=== PATIENT | female | born 2000 | race Caucasian/White ===

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

== ENCOUNTER 2021-03-19 13:37 | Emergency (ER) | payer OTHER ==
[~2021-03-19] VITALS: Ht 172.7 cm; Wt 90.9 kg
[~2021-03-19 13:37] MED LIST changes: +ONDA4TAB12 PO
[2021-03-19 15:41] LABS: INFLUENZA A PATIENT NEGATIVE (NEGATIVE); INFLUENZA B PATIENT NEGATIVE (NEGATIVE)
--- NOTE | 2021-03-19 16:21 | RAD ---
EXAMINATION: US OB <14 WKS +TV INDICATION: 21 years, Female, , abdominal pain and cramping, Covid 19 pneumonia. COMPARISON: 03/15/2019 TECHNIQUE: Transabdominal and transvaginal ultrasound of the pelvis was performed with grayscale, spe ctral, and color doppler imaging. FINDINGS: LMP: 01/09/2021 UTERUS: Measures: 8.7 x 8.3 x 7.0 cm. GESTATIONAL SAC: Normal morphology Juliette-Rump Length: 2.1 cm corresponds to 8 weeks and 5 days. Heart Rate: 185 bpm. Gestational age by last menstrual period:9 weeks and 6 days Expected date delivery by LMP: 10/16/2021. Expected date delivery by ultrasound is 10/24/2021 RIGHT OVARY/ADNEXA: Measures: 3.6 x 2.3 x 2.0 cm Right Ovarian Morphology: Unremarkable. Right Ovarian Color And Spectral Doppler Flow: Normal. LEFT OVARY/ADNEXA: Measures: 2.6 x 1.9 x 1.7 cm. Right Ovarian Morphology: Unremarkable. Right Ovarian Color And Spectral Doppler Flow: Normal. Fluid: None. IMPRESSION Single live intrauterine with estimated gestational age based on crown-rump length is 8 wee ks and 5 days. Electronically signed by: Marina Morrell MD (03/19/2021 4:18 PM) [facility]
[2021-03-19 16:24] LABS: BASO % 0 % (0-3); EOS % 0 % (0-3); HEMATOCRIT 37.6 % (36.0-47.0); HEMOGLOBIN 12.7 g/dL (12.0-15.5); LYMPH # 0.9 x10^3/uL (1.0-4.8); LYMPH % 13 % (24-48); MEAN CORPUSCULAR HEMOGLOBIN 30 pg (25-35); MEAN CORPUSCULAR HGB CONC 34 g/dL (31-37); MEAN CORPUSCULAR VOLUME 88 fL (79-100); MONO % 15 % (0-9); NEUT # 4.9 x10^3uL (1.8-7.7); NEUT % 72 % (31-73); PLATELET COUNT 229 x10^3/uL (140-400); RED BLOOD COUNT 4.28 x10^6/uL (3.50-5.40); RED CELL DISTRIBUTION WIDTH 15.1 % (11.5-14.5); WHITE BLOOD COUNT 6.8 x10^3/uL (4.0-11.0)
[2021-03-19] MEDS ORDERED: ONDANSETRON PF 4 MG/2 ML VIAL. IVP ONE (16:30)
[2021-03-19] MEDS ORDERED: IV NORMAL SALINE 1,000ML 1,000 ML IV ONE (16:30)
--- NOTE | 2021-03-19 16:30 | PHYS DOC ---
Past History Past Medical History: No Pertinent History (MASHA CARNEY APRN) Past Surgical History: Appendectomy (MASHA CARNEY APRN) Smoking: Non-smoker Alcohol Use: None Drug Use: None (MASHA CARNEY APRN) General Adult EDM: Chief Complaint: ABDOMINAL PAIN IN HPI: HPI: Patient is a 21-year-old female who presents to the emergency department today for fever, headache, nausea/vomiting and abdominal pain. She reports morning sickness but states that the vomiting has increased. Patient is reporting bilateral lower abdominal pain that she describes as sharp and rates 6 out of 10. She reports that her symptoms have been going on for approximately 1 week. Patient states that she has always had this constant pain ever since she found out she is . Patient is approximately 9 weeks . Her last menstrual period was January 09. She has an OB with the health department. She is G2, P1. She denies any cough, shortness of breath, chest pain, vaginal bleeding. (MASHA CARNEY APRN) Review of Systems: Review of Systems: Constitutional: negative unless reported in HPI Eyes: negative unless reported in HPI HENT: negative unless reported in HPI Respiratory: negative unless reported in HPI Cardiovascular: negative unless reported in HPI GI: negative unless reported in HPI : negative unless reported in HPI Musculoskeletal: negative unless reported in HPI Integument: negative unless reported in HPI Neurologic: negative unless reported in HPI Endocrine: negative unless reported in HPI Lymphatic: negative unless reported in HPI Psychiatric: negative unless reported in HPI (MASHA CARNEY APRN) Allergies: Allergies: Allergies Coded Allergies Type Severity Reaction Last Updated Verified No Known Drug Allergies 03/19/21 No (MASHA CARNEY APRN) Physical Exam: PE: Constitutional: Well developed, well nourished, no acute distress, non-toxic appearance. [] HENT: Normocephalic, atraumatic, bilateral external ears normal, oropharynx moist, no oral exudates, nose normal. [] Eyes: PERRL, EOMI, conjunctiva normal, no discharge. [] Neck: Normal range of motion, no stridor Cardiovascular:Heart rate regular rhythm, no murmur [] Lungs & Thorax: Bilateral breath sounds clear to auscultation [] Abdomen: Bowel sounds normal, soft, left lower pelvic/abdominal and pain with palpation, no masses, no pulsatile masses. [] Skin: Warm, dry, no erythema, no rash. [] Back: Normal range of motion Extremities: No tenderness, no cyanosis, no clubbing, ROM intact, no edema. [] Neurologic: Alert and oriented X 3, normal motor function, normal sensory function, no focal deficits noted. [] Psychologic: Affect normal, judgement normal, mood normal. [] (MASHA CARNEY APRN) Current Patient Data: Labs: Laboratory Tests Test 03/19/21 14:30 Influenza Type A (Rapid) Negative (NEGATIVE) Influenza Type B (Rapid) Negative (NEGATIVE) SARS-CoV-2 Antigen (Rapid) Positive (NEGATIVE) *A Vital Signs: Vital Signs Date Time Temp Pulse Resp B/P (MAP) Pulse Ox O2 Delivery O2 Flow Rate FiO2 03/19/21 14:25 98.0 97 18 119/78 (92) 99 Room Air (MASHA CARNEY APRN) EKG: EKG: [] (MASHA CARNEY APRN) Radiology/Procedures: Radiology/Procedures: []PROCEDURE: OB <14 WKS W/TV EXAMINATION: US OB <14 WKS +TV INDICATION: 21 years, Female, , abdominal pain and cramping, Covid 19 pneumonia. COMPARISON: 03/15/2019 TECHNIQUE: Transabdominal and transvaginal ultrasound of the pelvis was performed with grayscale, spectral, and color doppler imaging. FINDINGS: LMP: 01/09/2021 UTERUS: Measures: 8.7 x 8.3 x 7.0 cm. GESTATIONAL SAC: Normal morphology Burnet-Rump Length: 2.1 cm corresponds to 8 weeks and 5 days. Heart Rate: 185 bpm. Gestational age by last menstrual period:9 weeks and 6 days Expected date delivery by LMP: 10/16/2021. Expected date delivery by ultrasound is 10/24/2021 RIGHT OVARY/ADNEXA: Measures: 3.6 x 2.3 x 2.0 cm Right Ovarian Morphology: Unremarkable. Right Ovarian Color And Spectral Doppler Flow: Normal. LEFT OVARY/ADNEXA: Measures: 2.6 x 1.9 x 1.7 cm. Right Ovarian Morphology: Unremarkable. Right Ovarian Color And Spectral Doppler Flow: Normal. Fluid: None. IMPRESSION Single live intrauterine with estimated gestational age based on crown-rump length is 8 weeks and 5 days. Electronically signed by: Bessie Morrell MD (03/19/2021 4:18 PM) [facility] DICTATED AND SIGNED BY: BESSIE MORRELL MD DATE: 03/19/211612 CC: EMERGENCY,DEPARTMENT; MASHA CARNEY APRN; BACILIO PIERRE MD ~MTH0 0 (MASHA CARNEY APRN) Heart Score: C/O Chest Pain: N/A Risk Factors: Risk Factors: DM, Current or recent (<one month) smoker, HTN, HLP, family history of CAD, obesity. Risk Scores: Score 0 - 3: 2.5% MACE over next 6 weeks - Discharge Home Score 4 - 6: 20.3% MACE over next 6 weeks - Admit for Clinical Observation Score 7 - 10: 72.7% MACE over next 6 weeks - Early Invasive Strategies (MASHA CARNEY APRN) Course & Med Decision Making: Course & Med Decision Making Pertinent Labs and Imaging studies reviewed. (See chart for details) [] Patient presents to the emergency department for fever, headache and lower abdominal pain. Patient's rapid COVID test was positive. Patient also received blood work, urinalysis and ultrasound. Patient was treated with IV fluids and nausea medication. Patient's blood work was unremarkable. Beta hCG consistent with . Urinalysis showed a urinary tract infection patient be treated with antibiotic. Ultrasound showed a single intrauterine gestation measuring 8 weeks and 5 days, heart rate was 185. Normal ovarian blood flow. Patient will be discharged home with nausea medication. Patient advised to increase fluids and take Tylenol for any pain and follow-up with her OB tomorrow. I discussed with patient all findings and diagnostic testing as well as the need to follow- up with PCP for further evaluation and treatment or return to the ER if any new or worsening symptoms. Strict return precautions were also discussed at length. Patient voiced understanding and agreement with the plan. Patient is hemodynamically stable at the time of disposition. (MASHA CARNEY APRN) Dragon Disclaimer: Dragon Disclaimer: This electronic medical record was generated, in whole or in part, using a voice recognition dictation system. (MASHA CARNEY APRN) Attending Co-Sign The patient was seen and interviewed as well as examined at the bedside. The chart was reviewed. The case was discussed. Agree with the plan of care. (MCKENZIE TAFOYA DO) Departure Departure: Impression: Primary Impression: Urinary tract infection Qualified Codes: N30.00 - Acute cystitis without hematuria Additional Impression: Nausea & vomiting Qualified Codes: R11.2 - Nausea with vomiting, unspecified Disposition: HOME / SELF CARE / HOMELESS Condition: GOOD Referrals: BACILIO PIERRE MD (PCP) Patient Instructions: Nausea and Vomiting, [id number], Urinary Tract Infection Additional Instructions: You were seen in the emergency department today for fever, headache and abdominal pain in . Your rapid COVID test was positive. Your blood work was unremarkable. Your beta hCG quantitative result was [id number]. Your urinalysis showed a urinary tract infection which will be treated with an antibiotic. Please start and finish the antibiotic completely. Increase your fluids and rest. Take Tylenol for any pain. For any nausea you can take the medication that is prescribed for you. I would advise you to contact your OB tomorrow morning to set up a follow-up appointment, please let them know that you were COVID-positive so they can determine what treatments you should undergo. Return to the emergency department if you develop abdominal pain, vaginal bleeding, high fevers refractory to treatment, shortness of breath, chest pain, weakness. Scripts Cephalexin (KEFLEX) 500 Mg Capsule 1 CAP PO TID for uti for 7 Days, #21 CAP 0 Refills Prov: MASHA CARNEY APRN 03/19/21 Ondansetron (ONDANSETRON ODT) 4 Mg Tab.rapdis 1 TAB PO PRN Q6-8HRS for nausea for 7 Days, #28 TAB 0 Refills Prov: MASHA CARNEY APRN 03/19/21 MASHA CARNEY APRN Mar 19, 2021 16:30 MCKENZIE TAFOYA DO Mar 20, 2021 10:04
[2021-03-19 16:34] LABS: CALCIUM 8.5 mg/dL (8.5-10.1); CREATININE 0.7 mg/dL (0.6-1.0); GFR 105.6; POTASSIUM 3.7 mmol/L (3.5-5.1)
[2021-03-19 16:40] LABS: ALBUMIN 3.4 g/dL (3.4-5.0); TOTAL BILIRUBIN 0.2 mg/dL (0.2-1.0); TOTAL PROTEIN 6.9 g/dL (6.4-8.2)
[2021-03-19 16:40] LABS: BILIRUBIN,URINE SMALL (NEG); CLARITY,URINE CLOUDY; COLOR,URINE YELLOW; GLUCOSE,URINE NEG (NEG); NITRITE,URINE NEG (NEG); RBC,URINE 0 /HPF (0-2); UROBILINOGEN,URINE 0.2 mg/dL (0.2 mg/dL)
[2021-03-19 16:41] LABS: BACTERIA,URINE MANY /HPF (0-FEW); SQUAMOUS EPITHELIAL CELL,UR MANY /LPF; WBC,URINE 20-40 /HPF (0-4)
[2021-03-19] MEDS ORDERED: CEPH500C PO (17:27)
[2021-03-19] MEDS ORDERED: ONDA4TAB12 PO (17:27)
[2021-03-19 17:44] VITALS: BP 114/71
== END 2021-03-19 17:45 | disposition home or self-care (01) ==
LOC: ER 13:37
DX: O98.511 Other viral diseases complicating pregnancy, first trimester (principal); U07.1 COVID-19; O23.41 Unspecified infection of urinary tract in pregnancy, first trimester; N39.0 Urinary tract infection, site not specified; O21.9 Vomiting of pregnancy, unspecified; Z3A.08 8 weeks gestation of pregnancy; Z90.89 Acquired absence of other organs
CPT/HCPCS: 36415; 76801; 76817; 80053; 81001; 83690; 84702; 85025; 87086; 87428; 96361; 96374; 99284; J2405; J7030